=== PATIENT | male | born 1965 | race Caucasian/White ===

== ENCOUNTER 2024-06-11 07:37 | Emergency (ER) | payer BC ==
[2024-06-11] MEDS: Sodium Chloride 0.9% 10 ML Syringe FLUSH PRN (07:40)
[2024-06-11] MEDS: Ketorolac 30 MG/ML SDV IVPUSH ONE (07:55)
[2024-06-11] MEDS: LORazepam 2 MG/ML SDV IVPUSH ONE ×2 (07:56→08:04)
[2024-06-11] MEDS: methylPREDNISolone Sodium Succinate 125 MG/2 ML SDV IVPUSH ONE (07:56)
[2024-06-11] MEDS: Sodium Chloride 0.9% 1,000 ML IV ONE (07:57)
[2024-06-11] MEDS: Ondansetron 4 MG/2 ML SDV IVPUSH ONE (08:15)
[2024-06-11] MEDS: HYDROmorphone 2 MG/ML SDV IVPUSH ONE (08:15)
[2024-06-11] MEDS: Acetaminophen/oxyCODONE 325-5 MG Tab PO PRN (09:03)
[2024-06-11] MEDS: Cyclobenzaprine 10 MG Tab PO ONE (09:03)
== END 2024-06-11 10:15 | disposition home or self-care (01) ==
LOC: FB.ED 07:37
DX: M54.16 Radiculopathy, lumbar region (principal); I10 Essential (primary) hypertension
CPT/HCPCS: 72131; 96361; 96374; 96375; 99283-25; A9270-GY; J1171; J1885; J2060; J2405; J2919; J7030